=== PATIENT | male | born 1935 | race Caucasian/White ===

== ENCOUNTER 2017-01-15 07:19 | Day surgery (SDC) | payer MEDICARE, OTHER ==
[~2017-01-15 07:19] MED LIST: Buffered Lidocaine 1% SYR 3ML* 3 ML/SYR SYRINGE INTRADERM ONE
[2017-01-15] MEDS ORDERED: ceFAZolin 2 GM PREMIX(*) 2 GM/50 ML BAG IVPB ONE (07:29)
[2017-01-15] MEDS ORDERED: Midazolam* 1 MG/ML 5 ML VIAL (5 MG) ONE (08:45)
[2017-01-15] MEDS ORDERED: Bupivacaine 0.5% W/EPI SDV* 30 ML VIAL ONE (08:49)
[2017-01-15] MEDS ORDERED: Lidocaine 1% INJ* 10 MG/ML 30 ML SDV ONE (08:49)
[2017-01-15] MEDS ORDERED: Ketorolac INJ* 30 MG/ML 1 ML VIAL ONE (09:03)
[2017-01-15] MEDS ORDERED: fentaNYL* 50 MCG/ML 2 ML VIAL (100 MCG VIAL) ONE (09:04)
[2017-01-15] MEDS ORDERED: Ondansetron INJ* 2 MG/ML VIAL IV PRN (09:13)
[2017-01-15] MEDS ORDERED: fentaNYL* 50 MCG/ML 2 ML VIAL (100 MCG VIAL) IV PRN (09:13)
[2017-01-15 10:38] VITALS: BP 129/73
--- NOTE | 2017-01-15 14:02 | OP ---
CC: Cameron Bernstein MD; Honorio Moncada MD. OPERATIVE REPORT: DATE OF OPERATION: 01/15/2017 DATE OF : 37 SURGEON: Cameron Bernstein MD. REELING OPERATOR: Dafne Shirley NP ANESTHESIOLOGIST: Smooth Chong MD ANESTHESIA: LMAC. PRE-OP DIAGNOSIS: Left inguinal hernia. POST-OP DIAGNOSIS: Left inguinal hernia. OPERATIVE PROCEDURE: Open repair, left inguinal hernia with mesh. DESCRIPTION OF PROCEDURE: The patient was supine on the operative table. After adequate intravenou s sedation, compression stockings, Janel Hugger warmer, and intravenous antibiotics; the left groin w as clipped and prepped with antiseptic and draped in a sterile fashion. Local infiltrative anesthes ia was administered. Approximately 4 to 5 cm incision was created. Dissection was carried down to t he external oblique, which was opened in the direction of its fibers. Cord structures were encircle d with a [place] drain, tented upward, indirect space hernia was identified. This was dissected antonieta e and reduced and a cone mesh plug was placed into the internal ring, sutured at the transverse abd ominis and at the inguinal ligament. A second piece of mesh was placed over the inguinal floor, sut ured at the tubercle. Tails were split, brought around the cord structures and tacked down laterall y. The external oblique was closed over top of 2-0 Polysorb, Luke's with 3-0 Polysorb, skin with 4-0 Surgipro, followed by sterile dressing. He tolerated the procedure well. He was brought to [facility] in good condition. No complications. No drains. No pathologic specimens. Sponge, instrumen t counts correct. Estimated blood loss 10 mL. [id number]/CPS #: [id number]
== END 2017-01-15 10:45 | disposition home or self-care (01) ==
LOC: OR 07:19
PROVIDERS: ATTEND Surgery
DX: K40.90 Unilateral inguinal hernia, without obstruction or gangrene, not specified as recurrent (principal); N18.1 Chronic kidney disease, stage 1; D64.89 Other specified anemias; E78.2 Mixed hyperlipidemia
CPT/HCPCS: C1781; J0690; J1885; J2001; J2250; J3010